=== PATIENT | female | born 1990 | race Caucasian/White ===

== ENCOUNTER 2017-01-15 02:10 | Inpatient (IN) | payer BC ==
[2017-01-18] MEDS ORDERED: PRENATAL VIT1 TAB PO (13:46)
[2017-01-18] MEDS ORDERED: FOLVITE-DPS1 MG PO (13:47)
[2017-01-18] MEDS ORDERED: OYSTER SHELL C500 MG PO (13:47)
[2017-01-18] MEDS ORDERED: MAGNESIUM DR64 MG PO (13:47)
[2017-01-18] MEDS ORDERED: OMEGA-3 DPS1000 MG PO (13:47)
[2017-01-18] MEDS ORDERED: ZOLOFT DPS25 MG PO (13:48)
[2017-01-18] MEDS ORDERED: COLACE-DPS100 MG PO (13:48)
[2017-01-18] MEDS ORDERED: VITAMIN D1000 UNI1 PO (13:48)
[2017-01-18] MEDS ORDERED: PROBIOTIC1 EAC1 PO (13:48)
[2017-01-18] MEDS ORDERED: MILK OF MA400 MG/5 M PO (13:49)
[2017-01-18] MEDS ORDERED: MOTRIN-DPS800 MG PO (13:49)
[2017-01-18] MEDS ORDERED: TYLENOL #3 DPS1 TAB PO (13:49)
[2017-01-18] MEDS ORDERED: NIPPLECREAM TP (13:49)
== END 2017-01-17 13:20 | disposition home or self-care (01) | DRG 775 ==
DX: O99.344 Other mental disorders complicating childbirth (principal); O70.3 Fourth degree perineal laceration during delivery; F32.9 Major depressive disorder, single episode, unspecified; O62.1 Secondary uterine inertia; Z3A.39 39 weeks gestation of pregnancy; Z37.0 Single live birth